=== PATIENT | male | born 1960 | race Caucasian/White ===

== ENCOUNTER → 2018-09-14 08:35 | Outpatient (CLI) | payer OTHER, SELFPAY ==
[2018-09-14 09:10] LABS: Hematocrit 50.2 % (41-53); Hemoglobin 17.2 g/dL (13.5-17.5); Mean Corpuscular HGB Conc 34.2 % (30-36); Mean Corpuscular Hemoglobin 32.6 PG (26-34); Mean Corpuscular Volume 95.2 fL (80-100); Platelet Count 240 X10^3/uL (150-400); Red Blood Cell Count 5.27 X10^6/uL (4.5-5.9); Red Cell Distribution Width 13.2 % (11.6-14.8); White Blood Cell Count 5.8 X10^3/uL (4.5-11.0)
[2018-09-14 09:37] LABS: Alanine Aminotransferase 53 IU/L (21-72); Albumin 4.6 g/dL (3.5-5.0); Albumin Globulin Ratio 1.4 (1.0-2.8); Alkaline Phosphatase 74 U/L (38-126); Aspartate Aminotransferase 43 IU/L (17-59); BUN Creatinine Ratio 14.2 (6-22); Blood Urea Nitrogen 17 mg/dL (9-20); Calcium 9.6 mg/dL (8.4-10.2); Carbon Dioxide 29 mmol/L (22-32); Chloride 99 mmol/L (98-107); Cholesterol 305 mg/dL (140-199); Estimated Glomerular Filt Rate > 60.0 mL/min (>60); Globulin 3.3 g/dL (1.7-4.1); Glucose 113 mg/dL (70-100); HDL Cholesterol 61 mg/dL (40-60); HEMOLYSIS < 15 (0-50); LDL Cholesterol Calculated 215 mg/dL (<100); Potassium 4.4 mmol/L (3.4-5.1); Sodium 139 mmol/L (137-145); Total Protein 7.9 g/dL (6.3-8.2); Triglycerides 145 mg/dL (35-150)
[2018-09-14 09:59] LABS: Prostate Specific Antigen Scrn 0.704 ng/mL (0.1-4.0)
[2018-09-14 10:47] LABS: TSH w/ Reflex to FT4 5.66 uIU/mL (0.47-4.68)
[2018-09-14 11:26] LABS: Microalbumin Urine Random 4.9 mg/dL (0-1.6)
[2018-09-14 11:46] LABS: Free T4, Direct Thyroxine 1.03 ng/dL (0.78-2.19)
[2018-09-14 11:54] LABS: Creatinine Urine Random 391.5 mg/dL; Microalbumi Creatinin Ratio Ur 12.5 ug/mg CR (<30)
== END ==
PROVIDERS: PCP Nurse Practitioner Family; Visit Provider Nurse Practitioner Family
DX: E78.2 Mixed hyperlipidemia (principal); I10 Essential (primary) hypertension; Z12.5 Encounter for screening for malignant neoplasm of prostate; Z68.32 Body mass index [BMI] 32.0-32.9, adult
CPT/HCPCS: 36415; 80053; 80061; 82043; 82570; 83036; 84439; 84443; 85027; G0103

== ENCOUNTER → 2019-01-10 07:40 | Outpatient (CLI) | payer OTHER, SELFPAY ==
--- NOTE | 2019-01-10 07:41 | DI.US.S_ITS ---
PROCEDURE: US ABD AORTA ANEURYSM SCREEN INDICATIONS: FAMILY HISTORY AAA TECHNIQUE: Real time scanning was performed of the aorta and iliac arteries, with image documentation. COMPARISON: None. FINDINGS: Aorta: Proximal aorta not visualized.. Mid-aorta measures 1.7 cm. Distal aortic diameter is 1.5 cm. Iliac arteries: Right common iliac artery measures 0.9 cm. Left common iliac artery measures 0.9 cm. IMPRESSION: Proximal aorta not visualized; otherwise no abdominal aortic or proximal common iliac artery aneurysm. Dictated by: Patel BENDER Interpreted: Timmy Aguiar MD on 01/10/2019 at 8:32 Approved by: Timmy Aguiar M.D. on 01/10/2019 at 14:31
== END ==
PROVIDERS: PCP Nurse Practitioner Family; Visit Provider Nurse Practitioner Family
DX: Z13.6 Encounter for screening for cardiovascular disorders (principal); Z82.49 Family history of ischemic heart disease and other diseases of the circulatory system
CPT/HCPCS: 76706

== ENCOUNTER → 2019-02-02 08:03 | Outpatient (CLI) | payer OTHER, SELFPAY ==
[2019-02-02 10:12] LABS: Cholesterol 199 mg/dL (140-199); Glucose 90 mg/dL (70-100); HDL Cholesterol 72 mg/dL (40-60); LDL Cholesterol Calculated 104 mg/dL (<100); Triglycerides 117 mg/dL (35-150)
[2019-02-02 11:53] LABS: Creatinine Urine Random 197.1 mg/dL
[2019-02-02 11:54] LABS: Microalbumin Urine Random 0.8 mg/dL (0-1.6)
== END ==
PROVIDERS: PCP Nurse Practitioner Family; Visit Provider Nurse Practitioner Family
DX: E78.2 Mixed hyperlipidemia (principal); R73.01 Impaired fasting glucose; I10 Essential (primary) hypertension
CPT/HCPCS: 36415; 80061; 82043; 82570; 82947